=== PATIENT | male | born 1990 | race Caucasian/White ===

== ENCOUNTER 2022-07-16 18:00 | Outpatient (CLI) | payer OTHER | END 2022-07-16 18:01 | disposition home or self-care (01) | LOC: SLEEPLAB 18:00 | PROVIDERS: ATTEND Family Medicine | DX: G47.10 Hypersomnia, unspecified (principal); G47.9 Sleep disorder, unspecified; E66.9 Obesity, unspecified; R06.83 Snoring; I48.91 Unspecified atrial fibrillation; Z68.30 Body mass index [BMI] 30.0-30.9, adult | CPT/HCPCS: 95800 ==